=== PATIENT | male | born 1975 | race Caucasian/White ===

== ENCOUNTER 2020-09-27 17:31 | Emergency (ER) | payer MEDICAID, OTHER ==
[~2020-09-27] VITALS: Ht 160 cm; Wt 61.2 kg
--- NOTE | 2020-09-27 17:52 | NUR ---
Patient transferred to bed 7 via wheelchair by nurse. Patient's brother at bedside.
[2020-09-27 17:55] VITALS: BP 126/65
--- NOTE | 2020-09-27 18:00 | NUR ---
45 y/o male bib bother for right foot pain, pt has wound to right foot on 09/20 and saw child health associate today and was told to come to ED for infection to right foot. Pt states pain is 3/10 if area is palpated described as sharp and intermittent. Pt was prescribed cephalosporin abx, no relief. Pt can partially bear weight on affected foot. PMH: Scoliosis RX: cephalosporin NKA
[2020-09-27] MEDS ORDERED: VANCOMYCIN 1,000 MG in DEXTROSE 5% 250 ML IV ONE (18:10)
[2020-09-27] MEDS ORDERED: VANCOMYCIN 1,000 MG VIAL ONE (18:23)
--- NOTE | 2020-09-27 18:52 | NUR ---
Pt resting, HOB elevated, visible rise and fall of chest.
--- NOTE | 2020-09-27 19:20 | NUR ---
RECEIVED REPORT FROM CHRISSIE BENITEZ
--- NOTE | 2020-09-27 19:23 | NUR ---
Report given to ELI Cantu. Transfer of care at this time
--- NOTE | 2020-09-27 19:33 | NUR ---
IV ANTIBIOTICS STILL INFUSING. PT RESTING QUIETLY IN BED. NO DISTRESS NOTED. FAMILY AT BEDSIDE
[2020-09-27 20:12] VITALS: BP 144/85
--- NOTE | 2020-09-27 20:14 | NUR ---
Patient discharged with v/s stable. Written and verbal after care instructions given and explained. Patient verbalized understanding. Ambulatory with steady gait. All questions addressed prior to discharge. Advised to follow up with PMD.
== END 2020-09-27 20:13 | disposition home or self-care (01) ==
LOC: MED 17:31
DX: L02.611 Cutaneous abscess of right foot (principal)
CPT/HCPCS: 96365; 96366; 99284; J3370